=== PATIENT | female | born 1950 | race Caucasian/White ===

== ENCOUNTER → 2016-08-11 | Outpatient (CLI) | payer OTHER | LOC: BMCIMAGING 15:37 | PROVIDERS: ATTEND Podiatrist Foot & Ankle Surgery | DX: S92.111A Displaced fracture of neck of right talus, initial encounter for closed fracture (principal); M20.12 Hallux valgus (acquired), left foot ==

== ENCOUNTER → 2016-09-04 | Outpatient (CLI) | payer OTHER | LOC: BMCIMAGING 14:01 | PROVIDERS: ATTEND Podiatrist Foot & Ankle Surgery | DX: S92.114D Nondisplaced fracture of neck of right talus, subsequent encounter for fracture with routine healing (principal) ==

== ENCOUNTER → 2016-09-29 | Outpatient (CLI) | payer OTHER | LOC: BMCIMAGING 15:25 | PROVIDERS: ATTEND Podiatrist Foot & Ankle Surgery | DX: S92.114D Nondisplaced fracture of neck of right talus, subsequent encounter for fracture with routine healing (principal) ==

== ENCOUNTER → 2017-05-19 | Outpatient (CLI) | payer OTHER | LOC: BMCIMAGING 15:15 | PROVIDERS: ATTEND Internal Medicine | DX: Z12.31 Encounter for screening mammogram for malignant neoplasm of breast (principal); Z80.3 Family history of malignant neoplasm of breast ==